=== PATIENT | female | born 1980 | race Caucasian/White ===

== ENCOUNTER 2017-10-11 09:11 | Emergency (ER) | payer OTHER ==
[2017-10-11 09:21] VITALS: BP 154/97
--- NOTE | 2017-10-11 10:05 | UC ---
Skin Complaint HPI - HPI Summary HPI Summary: 37 y/o female presents to the urgent care c/o c/o rash "everywhere" for 10 days. Painful and itchy. - History of Current Complaint Chief Complaint: UCRash Time Seen by Provider: 10/11/17 09:59 Stated Complaint: RASH Hx Last Menstrual Period: 02/07/12 Pain Intensity: 5 - Allergy/Home Medications Allergies/Adverse Reactions: Allergies Allergy/AdvReac Type Severity Reaction Status Date / Time ENVIRONMENTAL/SEASONAL Allergy EYES PUFFY Uncoded 10/11/17 09:21 HAYFEVER Home Medications: Home Medications Amphetamine/Dextroamph ER(NF) [Adderal XR (NF)] 1 tab PO DAILY 10/11/17 [ History Confirmed 10/11/17] Cetirizine* [ZyrTEC 10 MG TAB*] 1 tab PO DAILY 10/11/17 [History Confirmed 10/11] Omeprazole CAP* [Prilosec CAP* 20 MG] 1 tab PO DAILY 10/11/17 [History Confirmed 10/11/17] busPIRone TAB* [Buspar TAB *] 1 tab PO TID 10/11/17 [History Confirmed 10/11/17] PMH/Surg Hx/FS Hx/Imm Hx - Surgical History Surgical History: Yes Surgery Procedure, Year, and Place: 2008 BILATERAL TUBAL LIGATION, CAHONE 2011 DILATION AND CURETTAGE, HYSTEROSCOPY, CYSTECTOMY, [facility]; CHOLECYSTECTOMY 2014; HYSTERECTOMY 2013 - Social History Alcohol Use: None Substance Use Type: None Smoking Status (MU): Never Smoked Tobacco Physical Exam Vital Signs: Initial Vital Signs Temp 98.2 F 10/11/17 09:18 Pulse 80 10/11/17 09:18 Resp 18 10/11/17 09:18 BP 154/97 10/11/17 09:18 Pulse Ox 99 10/11/17 09:18 Course/Dx - Diagnoses Provider Diagnoses: 1-Acute rash. 2-Elevate BP w/o Hx of HTN Discharge - Sign-Out/Discharge Documenting (check all that apply): Patient Departure - D/c home All imaging exams completed and their final reports reviewed: No Studies - Discharge Plan Condition: Stable Disposition: HOME Prescriptions: diPHENhydraMINE PO* [Benadryl PO 25 MG TAB*] 25 mg PO Q6H PRN #30 tab PRN Reason: pruritus predniSONE TAB* [Deltasone 20 MG TAB*] 20 mg PO DAILY #11 tab Triamcinolone 0.1% CREAM(NF) [Kenalog 0.1% Cream (NF)] 1 applic TOPICAL BID #1 tube Patient Education Materials: Acute Rash (ED), Low-Sodium Diet (ED) Referrals: Felicia Reyes MD [Primary Care Provider] - 3 Days Additional Instructions: 1-Please Start taking Prednisone PO taper dose to alleviate symptoms 2- Continue taking Benadryl PO to alleviate itchiness. Apply Triamcinolone topical cream as directed. Avoid exposure to the sun. 3-If symptoms do not improve or worsen please f/u with your PCP or reinforcing steel erector in 3 days for further evaluation and treatment. 4- If symptoms worsen and you develop SOB or difficulty breathing please go immediately to the ER for further management. 5-Your BP is elevated today. please decrease salt in your diet, monitor BP and if it continues to be elevated please f/u with your PCP for further management - Billing Disposition and Condition Condition: STABLE Disposition: Home
== END 2017-10-11 10:35 | disposition home or self-care (01) ==
LOC: UCEAST 09:11
DX: R21 Rash and other nonspecific skin eruption (principal); R03.0 Elevated blood-pressure reading, without diagnosis of hypertension
CPT/HCPCS: 99212; G0463